=== PATIENT | male | born 1935 | race Caucasian/White ===

== ENCOUNTER 2021-10-30 08:53 | Day surgery (SDC) | payer MEDICARE, BC ==
[2021-10-30] MEDS ORDERED: fentaNYL 100 MCG/2 ML SDV IV ONE (08:54)
[2021-10-30] MEDS ORDERED: Midazolam 1 MG/ML 2 ML SDV IV ONE (08:54)
[2021-10-30] MEDS ORDERED: Lactated Ringers 1,000 ML IV PRN (09:00)
[2021-10-30] MEDS: Sodium Chloride 0.9% 10 ML Syringe FLUSH PRN (09:30)
[2021-10-30] MEDS: acetaZOLAMIDE 500 MG Cap.ER PO ONE (11:16)
== END 2021-10-30 11:35 | disposition home or self-care (01) ==
LOC: FB.SDS 08:53
PROVIDERS: ATTEND Ophthalmology
DX: H25.13 Age-related nuclear cataract, bilateral (principal); H35.3132 Nonexudative age-related macular degeneration, bilateral, intermediate dry stage; H04.123 Dry eye syndrome of bilateral lacrimal glands; H52.03 Hypermetropia, bilateral; I10 Essential (primary) hypertension; Z79.899 Other long term (current) drug therapy; Z87.891 Personal history of nicotine dependence; Z98.890 Other specified postprocedural states
CPT/HCPCS: 00142-QZ; A9270-GY; C1780; J2250; J3010; J3490

== ENCOUNTER 2021-11-27 08:03 | Day surgery (SDC) | payer MEDICARE, BC ==
[~2021-11-27 08:03] MED LIST: Lactated Ringers 1,000 ML IV PRN; Sodium Chloride 0.9% 10 ML Syringe FLUSH PRN
[2021-11-27] MEDS ORDERED: fentaNYL 100 MCG/2 ML SDV IV ONE (08:04)
[2021-11-27] MEDS ORDERED: Midazolam 1 MG/ML 2 ML SDV IV ONE (08:04)
[2021-11-27] MEDS ORDERED: Ondansetron 4 MG/2 ML SDV IVPUSH ONE (08:04)
[2021-11-27] MEDS ORDERED: acetaZOLAMIDE 500 MG Cap.ER PO ONE (10:00)
== END 2021-11-27 10:20 | disposition home or self-care (01) ==
LOC: FB.SDS 08:03
PROVIDERS: ATTEND Ophthalmology
DX: H26.9 Unspecified cataract (principal); H21.81 Floppy iris syndrome; C61 Malignant neoplasm of prostate; Z79.1 Long term (current) use of non-steroidal anti-inflammatories (NSAID); Z79.899 Other long term (current) drug therapy
CPT/HCPCS: 00142; 66982; A9270; J2250; J2405; J3010; J3490